=== PATIENT | female | born 1985 | race Two or more races ===

== ENCOUNTER 2021-05-20 14:30 | Emergency (ER) | payer MEDICAID, OTHER ==
[~2021-05-20] VITALS: Ht 157.5 cm; Wt 55.8 kg
[2021-05-20] MEDS ORDERED: ACETAMINOPHEN 325 MG TAB PO ONE (15:30)
[2021-05-20 15:46] VITALS: BP 136/91
[2021-05-20] MEDS ORDERED: ALBU108A5 IN (16:23)
[2021-05-20] MEDS ORDERED: IBUP600T27 PO (16:23)
== END 2021-05-20 16:30 | disposition home or self-care (01) ==
LOC: ER 14:30 → EDBD 14:30 → ER 16:30
DX: S16.1XXA Strain of muscle, fascia and tendon at neck level, initial encounter (principal); F41.9 Anxiety disorder, unspecified; J45.909 Unspecified asthma, uncomplicated; V53.5XXA Driver of pick-up truck or van injured in collision with car, pick-up truck or van in traffic accident, initial encounter; Y93.89 Activity, other specified; Y92.410 Unspecified street and highway as the place of occurrence of the external cause; Y99.8 Other external cause status
CPT/HCPCS: 72040

== ENCOUNTER 2025-02-14 10:17 | Emergency (ER) | payer BC, MEDICAID ==
[~2025-02-14] VITALS: Ht 157.5 cm; Wt 57.0 kg
[~2025-02-14 10:17] MED LIST: ALBU108A5 IN; IBUP-1454 PO
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
[2025-02-14] MEDS: ALBUTEROL SULF 2.5 MG/0.5ML(0.5%) NEB SOLN NEB ONE ×2 (11:05→11:06)
[2025-02-14] MEDS: IPRATROPIUM BROM 0.5 MG/2.5ML INH SOL NEB ONE ×2 (11:05→11:06)
[2025-02-14 11:27] LABS: Hematocrit 36.5 % (36.0-46.0); Hemoglobin 12.6 g/dL (12.2-16.2); Mean Corpuscular Hemoglobin 27.5 pg (28.0-32.0); Mean Corpuscular Volume 79.4 fL (80.0-100.0); Nucleated Red Blood Cells % 0.0 %
[2025-02-14 11:33] LABS: Chloride 105 mmol/L (98-107); Sodium 141 mmol/L (136-145)
[2025-02-14] MEDS: FAMOTIDINE (10MG/ML) 2ML VL IV ONE (11:33)
[2025-02-14 11:34] LABS: Anion Gap 15 (5-15); Calcium 8.7 mg/dL (8.7-10.4); Carbon Dioxide 21 mmol/L (20-31)
[2025-02-14 11:35] LABS: Potassium 2.8 mmol/L (3.5-5.1)
[2025-02-14 11:39] LABS: BUN/Creatinine Ratio 8.3 (10.0-20.0)
[2025-02-14 11:49] LABS: Blood Urea Nitrogen 7 mg/dL (9-23); Glucose 166 mg/dL (74-106)
--- NOTE | 2025-02-14 14:52 | DVH ---
EXAM: XY CHEST PORTABLE HISTORY: Difficulty breathe TECHNIQUE: 1 view of the chest COMPARISON: None FINDINGS/IMPRESSION: LUNGS: No pleural effusion, consolidation, or pneumothorax. MEDIASTINUM: Unremarkable. BONES: No acute osseous abnormality. OTHER: None.
[2025-02-14] MEDS ORDERED: PRED20TA2 PO (18:35)
[2025-02-14] MEDS ORDERED: FAMO20TA10 PO (18:35)
[2025-02-14] MEDS ORDERED: DIPH25CA66 PO (18:35)
[2025-02-14] MEDS ORDERED: EPIN0.3I24 IJ (18:35)
[2025-02-14 19:34] VITALS: BP 103/58; PULSE 92; RESP 19; TEMP 98.8; O2SAT 97
== END 2025-02-14 19:39 | disposition home or self-care (01) ==
LOC: EDBD 10:17 → ER 10:17
DX: T78.2XXA Anaphylactic shock, unspecified, initial encounter (principal); R06.03 Acute respiratory distress; F12.90 Cannabis use, unspecified, uncomplicated; F41.9 Anxiety disorder, unspecified; J45.909 Unspecified asthma, uncomplicated; Z79.899 Other long term (current) drug therapy; Z98.51 Tubal ligation status; Z79.1 Long term (current) use of non-steroidal anti-inflammatories (NSAID); X58.XXXA Exposure to other specified factors, initial encounter; Y93.89 Activity, other specified; Y92.89 Other specified places as the place of occurrence of the external cause; Y99.8 Other external cause status
CPT/HCPCS: 36415; 71045; 80048; 81025; 85025; 94640; 96374; 96375; 99291; 99292; J1100; J3490